=== PATIENT | male | born 1950 ===

== ENCOUNTER 2017-06-15 09:15 | Outpatient (RCR) | payer OTHER | END 2017-06-20 | disposition home or self-care (01) | LOC: PTY 09:15 | DX: M17.11 Unilateral primary osteoarthritis, right knee (principal); M25.512 Pain in left shoulder; E11.9 Type 2 diabetes mellitus without complications; Z96.651 Presence of right artificial knee joint | CPT/HCPCS: 97110; 97140; 97162; G0283 ==

== ENCOUNTER 2017-07-17 09:06 | Outpatient (RCR) | payer OTHER | END 2017-07-20 | disposition home or self-care (01) | LOC: PTY 09:06 | DX: M17.11 Unilateral primary osteoarthritis, right knee (principal); M25.512 Pain in left shoulder; E11.9 Type 2 diabetes mellitus without complications; Z96.651 Presence of right artificial knee joint | CPT/HCPCS: 97035; 97110; 97140; G0283 ==

== ENCOUNTER 2017-08-16 14:30 | Outpatient (RCR) | payer OTHER | END 2017-08-20 | disposition home or self-care (01) | LOC: PTY 14:30 | DX: M17.11 Unilateral primary osteoarthritis, right knee (principal); M25.512 Pain in left shoulder | CPT/HCPCS: 97035; 97110; G0283 ==

== ENCOUNTER 2017-09-05 08:30 | Outpatient (RCR) | payer OTHER | END 2017-09-20 | disposition home or self-care (01) | LOC: PTY 08:30 | DX: M25.512 Pain in left shoulder (principal); M17.11 Unilateral primary osteoarthritis, right knee | CPT/HCPCS: 97110; G0283 ==

== ENCOUNTER 2017-09-26 08:06 | Outpatient (RCR) | payer OTHER | END 2017-10-18 | disposition home or self-care (01) | LOC: PTY 08:06 | DX: M25.512 Pain in left shoulder (principal); M17.11 Unilateral primary osteoarthritis, right knee | CPT/HCPCS: 97110; G0283 ==

== ENCOUNTER 2017-10-25 15:15 | Outpatient (RCR) | payer OTHER | END 2017-11-18 | disposition home or self-care (01) | LOC: PTY 15:15 | DX: M17.11 Unilateral primary osteoarthritis, right knee (principal) | CPT/HCPCS: 97110; G0283 ==